=== PATIENT | female | born 1995 | race African-American/Black ===

== ENCOUNTER 2017-02-06 11:55 | Emergency (ER) | payer SELFPAY ==
[~2017-02-06 11:55] MED LIST: Sodium Chloride 0.9% 1,000 ML BAG ONE
[2017-02-06] MEDS ORDERED: Ondansetron HCl/PF 4 MG/2 ML Vial ONE (12:35)
[2017-02-06 13:13] LABS: ALT (SGPT) 13 U/L (8-55); AST (SGOT) 13 U/L (5-34); Albumin 3.8 g/dL (3.5-5.0); Alkaline Phosphatase 97 U/L (40-150); Anion Gap 18 mmol/L (10-20); BUN (Urea Nitrogen) 8 mg/dL (7.0-18.7); Bilirubin, Total 0.4 mg/dL (0.2-1.2); Calc. Creatinine Clearance 0 mL/min (70-130); Calcium 9.1 mg/dL (7.8-10.44); Carbon Dioxide 20 mmol/L (22-29); Chloride 106 mmol/L (98-107); Estimated GFR-MDRD Greater than 90; Globulin 4.1 g/dL (2.4-3.5); Glucose 119 mg/dL (70-105); Lipase 11 U/L (8-78); Potassium 3.9 mmol/L (3.5-5.1); Protein, Total 7.9 g/dL (6.0-8.3); Sodium 140 mmol/L (136-145)
[2017-02-06 13:26] LABS: Hemoglobin 12.4 g/dL (12.0-16.0); Lymphocytes 9 % (28-48); MDiff Complete? YES; Mean Corpuscular HGB CONC 31.6 g/dL (32.0-36.0); Mean Corpuscular Hemoglobin 23.6 pg (25.0-35.0); Mean Corpuscular Volume 74.8 fl (77.0-87.0); Mean Platelet Volume 5.2 fL (7.4-10.4); Monocytes 4 % (0-4); Neutrophil 87 % (31-61); PLT Morphology Comment Appears Increased; Platelet Count 498 thou/uL (130-400); RBC Distribution Width 14.1 % (11.5-14.5); Red Blood Cell (RBC) Count 5.26 mill/uL (4.00-5.20); White Blood Cell (WBC) Count 11.3 thou/uL (4.8-10.8)
[2017-02-06 13:47] LABS: Bilirubin Small (Negative); Blood, Urine Trace (Negative); Clarity Slightly Cloudy (Clear); Glucose, Urine (Dipstick) Negative (Negative); Leukocyte Trace (Negative); Nitrite Negative (Negative); Protein, Urine (Dipstick) 30 mg/dL (Neg-Trace)
[2017-02-06 13:49] LABS: Pregnancy Test - Urine (BHCG) Negative (Negative); Pregu Control Background? CLEAR/WHITE (CLR/WHITE); Pregu Control Bar Appear? YES (CONTROL BAR)
[2017-02-06 13:54] LABS: Bacteria/HPF 4+ HPF (None Seen); RBC/HPF 0-3 HPF (0-3); WBC/HPF 0-3 HPF (0-3)
== END 2017-02-06 14:22 | disposition home or self-care (01) ==
LOC: MADERS 11:55
DX: K52.9 Noninfective gastroenteritis and colitis, unspecified (principal); N30.01 Acute cystitis with hematuria
CPT/HCPCS: 80053; 81003; 81015; 81025; 82150; 83690; 85025; 96361; 96374; J2405; J7050

== ENCOUNTER 2017-02-26 09:07 | Emergency (ER) | payer SELFPAY ==
[2017-02-26] MEDS ORDERED: Bicillin LA 1.2 MILLION UNITS/2 ML SYRINGE ONE (09:29)
== END 2017-02-26 09:48 | disposition home or self-care (01) ==
LOC: MADERS 09:07
DX: J02.0 Streptococcal pharyngitis (principal)
CPT/HCPCS: 96372; J0561

== ENCOUNTER 2017-02-27 17:31 | Emergency (ER) | payer SELFPAY ==
[~2017-02-27 17:31] MED LIST changes: +Iopamidol 370 76% 125 ML VIAL FS ONE
[2017-02-27] MEDS ORDERED: Clindamycin/D5W 600 mg/50 ml Premix Bag ONE (18:03)
[2017-02-27] MEDS ORDERED: Morphine 4 MG/ML VIAL ONE (18:03)
[2017-02-27] MEDS ORDERED: Dexamethasone 10 MG/ML VIAL ONE (18:03)
[2017-02-27 18:19] LABS: Pregnancy Test - Urine (BHCG) Negative (Negative)
[2017-02-27 18:20] LABS: Pregu Control Background? CLEAR/WHITE (CLR/WHITE); Pregu Control Bar Appear? YES (CONTROL BAR); Specific Gravity 1.029 (1.002-1.036)
[2017-02-27 18:37] LABS: Prothrombin Time 13.7 SEC (12.0-14.7)
[2017-02-27 18:45] LABS: Anion Gap 14 mmol/L (10-20); BUN (Urea Nitrogen) 7 mg/dL (7.0-18.7); Calc. Creatinine Clearance 0 mL/min (70-130); Calcium 9.2 mg/dL (7.8-10.44); Carbon Dioxide 23 mmol/L (22-29); Chloride 104 mmol/L (98-107); Estimated GFR-MDRD Greater than 90; Glucose 102 mg/dL (70-105); Potassium 3.8 mmol/L (3.5-5.1); Sodium 137 mmol/L (136-145)
[2017-02-27 18:51] LABS: Eosinophils 1 % (0-10); Hemoglobin 12.3 g/dL (12.0-16.0); Lymphocytes 14 % (28-48); MDiff Complete? YES; Mean Corpuscular HGB CONC 30.3 g/dL (32.0-36.0); Mean Corpuscular Hemoglobin 22.8 pg (25.0-35.0); Mean Corpuscular Volume 75.3 fl (77.0-87.0); Mean Platelet Volume 5.4 fL (7.4-10.4); Monocytes 4 % (0-4); Neutrophil 72 % (31-61); PLT Morphology Comment Appears Increased; Platelet Count 538 thou/uL (130-400); RBC Distribution Width 14.1 % (11.5-14.5); RBC Morphology Normal; Reactive Lymphocytes 9 % (0-10); Red Blood Cell (RBC) Count 5.38 mill/uL (4.00-5.20); White Blood Cell (WBC) Count 11.2 thou/uL (4.8-10.8)
--- NOTE | 2017-02-27 19:32 | CT ---
NECK CT WITH IV CONTRAST: Date: 02/27/17 COMPARISON: None. HISTORY: Pain, sore throat, face and neck swelling. TECHNIQUE: Serial axial CT imaging at 2.5 mm intervals from the thoracic inlet through the skull base with IV co ntrast. Coronal and sagittal reformatted imaging obtained. FINDINGS: The retroantral fat and the parapharyngeal fat appears clear bilaterally. There is mild symmetric pro minence of the tonsillar soft tissues with no evidence for a tonsillar or peritonsillar abscess. Ther e is mild mucosal thickening involving the alveolar recess of the left maxillary sinus. Bilateral par otid and submandibular glands appear unremarkable. The thyroid gland, hyoid bone, epiglottis, and preepiglottic fat appear unremarkable. Streak artifact from dental amalgam slightly limits assessment of the oral cavity and the tongue. Nonspecific enlarged bilateral Level IIA lymph nodes are noted, measuring up to 1.5 cm in short axis dimension on the left (image 30) and up to 1.6 cm in short axis dimension on the right (image 26). No enlarged posterior triangle nodes are present. No evidence for abscess seen. Osseous structures demo nstrate no acute findings. On the sagittal reformatted imaging, the nasopharyngeal mucosa is prominent. IMPRESSION: Prominence of the nasopharyngeal soft tissues and bilateral tonsillar pillars with lymphadenopathy wi thin the neck bilaterally. Findings are presumably reactive/inflammatory in nature. Follow-up imaging to document resolution and thus exclude the unlikely possibility of neoplasia. No evidence for absce ss. POS: [facility]
== END 2017-02-27 20:15 | disposition critical access hospital (66) ==
LOC: MADERS 17:31
DX: J02.9 Acute pharyngitis, unspecified (principal)
CPT/HCPCS: 70491; 80048; 81025; 85025; 85610; 85730; 86850; 86900; 86901; 87081; 87430; 96365; 96375; J1100; J2270; J3490; J7050

== ENCOUNTER 2017-02-27 19:42 | Observation (INO) | payer SELFPAY ==
[2017-02-27] MEDS ORDERED: Ketorolac Tromethamine 30 MG/ML VIAL ONE (19:51)
[2017-02-27] MEDS ORDERED: Acetaminophen 325 MG TAB PO PRN (20:37)
[2017-02-27] MEDS ORDERED: Ondansetron HCl/PF 4 MG/2 ML Vial SLOW IVP PRN (20:37)
[2017-02-27] MEDS ORDERED: Morphine 4 MG/ML Carpuject SLOW IVP PRN (20:40)
[2017-02-27] MEDS ORDERED: Ketorolac Tromethamine 30 MG/ML VIAL IVP PRN (20:42)
[2017-02-27 20:46] VITALS: BMI 46.5
[2017-02-27] MEDS ORDERED: Clindamycin/D5W 600 MG in Premix Bag 1 BAG IVPB SCH (21:00)
[2017-02-27] MEDS: Sodium Chloride 0.9% 1,000 ML IV SCH (22:13)
[2017-02-27] MEDS ORDERED: Chloraseptic Spray 180 ml Bottle PO PRN (22:49)
[2017-02-28] MEDS ORDERED: Morphine 4 MG/ML VIAL ONE (01:05)
[2017-02-28] MEDS ORDERED: Morphine 4 MG/ML VIAL SLOW IVP PRN (01:21)
[2017-02-28] MEDS: Clindamycin/D5W 600 MG in Premix Bag 1 BAG IVPB SCH ×2 (01:26→09:36)
[2017-02-28] MEDS: Sodium Chloride 0.9% 1,000 ML IV SCH (05:22)
[2017-02-28 08:58] LABS: Hemoglobin 11.6 g/dL (12.0-16.0); Mean Corpuscular HGB CONC 30.4 g/dL (32.0-36.0); Mean Corpuscular Hemoglobin 22.7 pg (25.0-35.0); Mean Corpuscular Volume 74.8 fl (77.0-87.0); Mean Platelet Volume 5.8 fL (7.4-10.4); Platelet Count 522 thou/uL (130-400); RBC Distribution Width 13.8 % (11.5-14.5); Red Blood Cell (RBC) Count 5.04 mill/uL (4.00-5.20)
[2017-02-28] MEDS ORDERED: Dexamethasone 10 MG/ML VIAL SLOW IVP SCH (09:00)
[2017-02-28] MEDS ORDERED: FLU VACC QS2017-18 36 mo. & older 0.5 ML SYRINGE IM ONE (09:00)
[2017-02-28 09:09] LABS: Anion Gap 14 mmol/L (10-20); BUN (Urea Nitrogen) 8 mg/dL (7.0-18.7); Calc. Creatinine Clearance 281 mL/min (70-130); Calcium 9.1 mg/dL (7.8-10.44); Carbon Dioxide 18 mmol/L (22-29); Chloride 108 mmol/L (98-107); Estimated GFR-MDRD Greater than 90; Glucose 190 mg/dL (70-105); Potassium 4.3 mmol/L (3.5-5.1); Sodium 136 mmol/L (136-145)
[2017-02-28 09:23] LABS: MONO NEGATIVE CONTROL ZONE White (Negative) (White); MONO POSITIVE CONTROL Pink Line (Positive) (PINK/RED); Mononucleosis NEGATIVE (NEGATIVE)
[2017-02-28] MEDS ORDERED: Ibuprofen 800 MG TAB PO PRN (09:34)
--- NOTE | 2017-02-28 09:38 | HP ---
DATE OF ADMISSION: 02/27/2017 CHIEF COMPLAINT: Sore throat. HISTORY OF PRESENT ILLNESS: This is a 21-year-old -[place] female with history of ventricular septal defect that presented to the emergency room initially on 02/26/2017 with complaint of sore throat and painful swallowing. The patient was given IM Bicillin shot and discharged home. The following day, patient had worsening symptoms, so presented back to the emergency room. At that time, she was noted by the emergency room physician to have significant trismus, severe discomfort, and inability to swallow. Blood work indicated a mild leukocytosis and CT scan was ordered by the emergency room physician to roll out tonsillar abscess. CT scan was significant for prominence of the nasopharyngeal soft tissues and bilateral tonsillar pillars with associated lymphadenopathy of the neck bilaterally, which were likely disability representative of a reactive or inflammatory etiology. No abscess was noted. Rapid Strep screen was negative. No throat culture testing or mono testing was done. The patient was admitted to the medical floor for observation by Dr. Grajeda for IV antibiotics and steroids as well as IV pain control. Upon interviewing the patient this morning, she reports significant improvement throughout the night. She is now able to open her mouth completely and swallow with much less discomfort. She has not had any fevers overnight and is able to take small sips this morning. She has not yet attempted to eat breakfast. The patient reports associated bilateral ear pain as well as facial pain, but denies any headache, neck pain, chest pain, shortness of breath, nausea, vomiting, or diarrhea. The patient reports she has had 1 prior episode of strep throat this year back in December that was treated with amoxicillin and resolved completely, but otherwise has not had recurrent episodes of pharyngitis or tonsillitis. PAST MEDICAL HISTORY: Ventricular septal defect. The patient does not follow with a research psychologist. PAST SURGICAL HISTORY: None. FAMILY HISTORY: Positive for multiple family members with diabetes. SOCIAL HISTORY: The patient is a nonsmoker, nondrinker. She does not use illicit drugs. She lives at home with her family. ALLERGIES: No known drug allergies. REVIEW OF SYSTEMS: General: Negative for fever, weight changes, or body aches. HEENT: Positive for sore throat, difficulty swallowing, ear pain, facial pain. Cardiovascular: Denies any chest pain, palpitations. Respiratory : Denies any cough, shortness of breath, or difficulty breathing. Abdominal: Denies any nausea, vomiting, diarrhea, constipation, blood in her stools. Genitourinary: Denies any urinary symptoms. Musculoskeletal: Denies any joint pain, joint swelling, or difficulty walking. Neurologic: Denies any syncope, seizures, or headache. Integumentary: Denies any rash. Hematologic/ Oncologic: Denies any easy bruising or easy bleeding. PHYSICAL EXAMINATION: VITAL SIGNS: Temperature is 97.5 with a T-max of 99.5 overnight, blood pressure is 107/63, heart rate has ranged between 89 and 102, respirations 18, O2 saturation 98% on room air. GENERAL: The patient is alert, oriented, awake, and sitting up in bed. She is in no apparent distress. She is cooperative. HEENT: Normocephalic, atraumatic. Pupils are equally round and reactive to light. Extraocular movements are intact. Sclerae are nonicteric. Bilateral tympanic membranes are dull without erythema or perforation. Face is symmetric without any significant swelling. Oropharynx is mildly dry and significant for 3+ tonsillar hypertrophy with erythema and exudates bilaterally. No deviation of the uvula. NECK: Supple, without thyromegaly, lymphadenopathy that is palpable. Negative for stiffness. CARDIOVASCULAR: Significant for 3/6 systolic murmur. Rate is regular. No edema. RESPIRATORY: Lungs are clear to auscultation bilaterally without adventitial sounds. GASTROINTESTINAL: Abdomen is soft, nontender, nondistended with normoactive bowel sounds. EXTREMITIES: Negative for clubbing, cyanosis, or edema. Brisk cap refill. NEUROLOGIC: No focal deficits. PSYCHIATRIC: Mood is appropriate. LABORATORY DATA AND IMAGING: CBC with a white blood cell count of 11.2, hemoglobin of 12.3, hematocrit 40.5, platelets 538. Normal coagulation panel. Normal chemistry panel. Urine specific gravity was 1.029 and urine test was negative. Group A strep screen was negative. CT scan indicated prominence of nasopharyngeal soft tissues and bilateral tonsillar pillars with lymphadenopathy within the neck bilaterally suggestive of a reactive or inflammatory etiology. No definite abscess. ASSESSMENT AND PLAN: 1. Exudative pharyngitis. The patient was admitted to the medical floor under observation status for continued IV antibiotics, IV pain control, and IV steroids. The patient is much improved this morning. We will continue on her current management with a plan to advance her diet as tolerated this morning. We will reevaluate the patient later today, and if she continues to tolerate fluids with good pain control then we will anticipate discharge home on p.o. amoxicillin as well as pain medication. I have ordered a followup throat culture given the negative strep screen in the emergency room as well as mononucleosis testing. 2. Leukocytosis with left shift: Likely disability representative of bacterial pharyngitis. Management as above. 3. Ventricular septal defect. This is chronic for the patient. She does not follow with a research psychologist at this time despite being urged to do so on the outpatient clinic. We will continue to have these discussions with the patient and her mom later today as to the importance of at least yearly followup for this. DISPOSITION: The patient is under observation status and is anticipated to be discharged later today pending continued clinical improvement with anticipated outpatient followup in 1-2 days. Deep venous thrombosis prophylaxis, none. CODE STATUS: The patient is FULL CODE. MTDD
[2017-02-28 09:45] LABS: Band 1 % (5-11); Lymphocytes 6 % (28-48); MDiff Complete? YES; Manual Diff?? YES; Monocytes 4 % (0-4); Neutrophil 89 % (31-61)
[2017-02-28 09:46] LABS: Anisocytosis SLIGHT = 6-15 cells (100X) (0-5/hpf); PLT Morphology Comment Appears Increased
[2017-02-28] MEDS ORDERED: Sodium Chloride 0.9% 1,000 ML BAG ONE (12:01)
[2017-02-28 16:46] VITALS: BP 136/68; TEMP 98.1
[2017-02-28] MEDS ORDERED: Clindamycin/D5W 600 MG in Premix Bag 1 BAG IVPB SCH (18:00)
== END 2017-02-28 17:20 | disposition home or self-care (01) ==
LOC: MADMS 19:42
PROVIDERS: ADMIT Family Medicine; ATTEND Family Medicine
DX: J02.9 Acute pharyngitis, unspecified (principal); D72.829 Elevated white blood cell count, unspecified; Q21.0 Ventricular septal defect
CPT/HCPCS: 36415; 80048; 85025; 86308; 87070; 90471; 90682; 96361; 96365; 96375; A4216; G0008; G0378; J1100; J1885; J2270; J3490; J7050; Q2036

== ENCOUNTER 2017-03-23 02:59 | Emergency (ER) | payer SELFPAY ==
[2017-03-23] MEDS ORDERED: Ondansetron ODT 4 MG TAB ONE (03:17)
== END 2017-03-23 03:40 | disposition home or self-care (01) ==
LOC: MADERS 02:59
DX: K52.9 Noninfective gastroenteritis and colitis, unspecified (principal)
CPT/HCPCS: 96372; Q0162

== ENCOUNTER 2017-04-07 17:40 | Emergency (ER) | payer SELFPAY ==
[2017-04-07] MEDS ORDERED: HYDROcodone/Acetaminophen 10/325 mg Tablet ONE (19:29)
[2017-04-07] MEDS ORDERED: Benzonatate 100 MG CAP ONE (19:29)
[2017-04-07] MEDS ORDERED: Naproxen 500 MG TAB ONE (19:29)
[2017-04-07] MEDS ORDERED: AMOXicillin 250 MG CAP ONE (20:01)
[2017-04-07] MEDS ORDERED: predniSONE 20 MG TAB ONE (20:01)
== END 2017-04-07 20:07 | disposition home or self-care (01) ==
LOC: MADERS 17:40
DX: J20.9 Acute bronchitis, unspecified (principal)
CPT/HCPCS: 87081; 87430; 99283; J7506

== ENCOUNTER 2017-05-13 07:40 | Emergency (ER) | payer SELFPAY ==
[2017-05-13] MEDS ORDERED: AMOXicillin 250 MG CAP ONE (09:34)
[2017-05-13] MEDS ORDERED: Benzonatate 100 MG CAP ONE (09:35)
== END 2017-05-13 09:43 | disposition home or self-care (01) ==
LOC: MADERS 07:40
DX: J02.9 Acute pharyngitis, unspecified (principal)
CPT/HCPCS: 87081; 87430; 87804; 99283

== ENCOUNTER 2017-06-25 14:46 | Emergency (ER) | payer SELFPAY ==
[2017-06-25 16:12] LABS: Bilirubin Negative (Negative); Blood, Urine Large (Negative); Clarity Slightly Cloudy (Clear); Glucose, Urine (Dipstick) Negative (Negative); Leukocyte Negative (Negative); Nitrite Negative (Negative); Protein, Urine (Dipstick) Negative (Neg-Trace); Urobilinogen 0.2 mg/dL (0.2-1.0); pH, Urine 7.5 (5.0-9.0)
[2017-06-25 16:15] LABS: Pregnancy Test - Urine (BHCG) Negative (Negative); Pregu Control Background? CLEAR/WHITE (CLR/WHITE); Pregu Control Bar Appear? YES (CONTROL BAR)
[2017-06-25 16:16] LABS: Bacteria/HPF 1+ HPF (None Seen); RBC/HPF 21-50 HPF (0-3); WBC/HPF 0-3 HPF (0-3)
== END 2017-06-25 16:40 | disposition home or self-care (01) ==
LOC: MADERS 14:46
DX: J20.9 Acute bronchitis, unspecified (principal)
CPT/HCPCS: 81001; 81025; 87081; 87086; 87430

== ENCOUNTER 2017-08-06 21:02 | Emergency (ER) | payer SELFPAY ==
[2017-08-06] MEDS ORDERED: Diazepam 5 MG TAB ONE (21:31)
[2017-08-06] MEDS ORDERED: Naproxen 500 MG TAB ONE (21:31)
[2017-08-06] MEDS ORDERED: HYDROcodone/Acetaminophen 10/325 mg Tablet ONE (21:31)
--- NOTE | 2017-08-06 21:54 | RAD ---
TWO VIEWS LUMBAR SPINE: 08/06/17 HISTORY: Back pain. AP and lateral views of the lumbar spine is obtained. Five nonribbearing lumbar vertebrae are seen. No evidence of lumbar spine fractures or bony lesions s een. IMPRESSION: Normal two views lumbar spine. POS: [facility]
== END 2017-08-06 22:10 | disposition home or self-care (01) ==
LOC: MADERS 21:02
DX: M54.5 Low back pain (principal); X50.0XXA Overexertion from strenuous movement or load, initial encounter
CPT/HCPCS: 72100

== ENCOUNTER 2017-09-02 20:25 | Emergency (ER) | payer SELFPAY ==
[2017-09-02] MEDS ORDERED: Acetaminophen 500 MG TAB ONE (21:00)
--- NOTE | 2017-09-02 21:07 | RAD ---
TWO VIEWS OF THE CHEST: 09/02/17 COMPARISON: 09/18/15. HISTORY: Cough. FINDINGS: No pneumothorax, pleural fluid, focal consolidation, or alveolar edema. Heart and mediastinal contour s are stable. No acute findings are seen. IMPRESSION: No acute findings. POS: [facility]
== END 2017-09-02 21:34 | disposition home or self-care (01) ==
LOC: MADERS 20:25
DX: H66.92 Otitis media, unspecified, left ear (principal); J06.9 Acute upper respiratory infection, unspecified; R01.1 Cardiac murmur, unspecified; E66.9 Obesity, unspecified
CPT/HCPCS: 71046; 93005

== ENCOUNTER 2017-09-03 16:07 | Emergency (ER) | payer SELFPAY ==
[2017-09-03] MEDS ORDERED: Neomycin/Polymyxin/HC Otic Solution 10 ML BOT ONE (16:46)
[2017-09-03] MEDS ORDERED: NEOMYCIN-POLYMYXIN-HC EAR SUSP 200 DROP/10 ML BOT ONE (16:52)
== END 2017-09-03 17:07 | disposition home or self-care (01) ==
LOC: MADERS 16:07
DX: H60.93 Unspecified otitis externa, bilateral (principal); E66.9 Obesity, unspecified
CPT/HCPCS: 99282

== ENCOUNTER 2017-11-07 12:14 | Outpatient (CLI) | payer BC ==
--- NOTE | 2017-11-07 13:21 | RAD ---
LEFT SHOULDER THREE VIEWS: History: 21-year-old female with history of left shoulder strain following an injury taking out the trash last night. FINDINGS/IMPRESSION: No fracture, dislocation, or other significant acute osseous abnormality. POS: [facility]
== END 2017-11-07 12:15 | disposition home or self-care (01) ==
LOC: MADRAD 12:14
PROVIDERS: ATTEND Family Medicine
DX: S49.92XA Unspecified injury of left shoulder and upper arm, initial encounter (principal)

== ENCOUNTER 2018-05-18 20:11 | Emergency (ER) | payer BC ==
--- NOTE | 2018-05-18 21:29 | RAD ---
TWO VIEW CHEST: 05/18/18 HISTORY: Chest pain. Lung coppola are clear. Heart size is upper normal. The heart configuration and size is stable when co mpared to films dating back to 2016. Vascular markings normal. Osseous structures are unremarkable. IMPRESSION: Borderline enlarged heart. Chest is otherwise unremarkable and unchanged. POS: [facility]
== END 2018-05-18 22:20 | disposition home or self-care (01) ==
LOC: MADERS 20:11
DX: R07.89 Other chest pain (principal)
CPT/HCPCS: 71046; 93005

== ENCOUNTER 2018-10-11 19:56 | Emergency (ER) | payer BC ==
--- NOTE | 2018-10-11 21:28 | RAD ---
PORTABLE CHEST: 10/11/18 HISTORY: Chest pain. Heart size is prominent but is accentuated by this projection. Vascular markings appear upper normal. The lung coppola are clear. Exam is limited due to soft tissue attenuation. IMPRESSION: No acute abnormality identified. POS: [facility]
[2018-10-11] MEDS ORDERED: Naproxen 500 MG TAB ONE (22:25)
== END 2018-10-11 22:35 | disposition home or self-care (01) ==
LOC: MADERS 19:56
DX: M94.0 Chondrocostal junction syndrome [Tietze] (principal); E66.9 Obesity, unspecified
CPT/HCPCS: 71045; 93005

== ENCOUNTER 2018-11-24 07:33 | Emergency (ER) | payer BC ==
[2018-11-24] MEDS ORDERED: Ondansetron ODT 4 MG TAB ONE (08:16)
== END 2018-11-24 09:00 | disposition home or self-care (01) ==
LOC: MADERS 07:33
DX: K52.9 Noninfective gastroenteritis and colitis, unspecified (principal); E66.9 Obesity, unspecified
CPT/HCPCS: 99283; Q0162

== ENCOUNTER 2019-05-16 19:12 | Emergency (ER) | payer BC ==
[~2019-05-16 19:12] MED LIST changes: +Iopamidol 370 76% 100 ML VIAL ONE; -Iopamidol 370 76% 125 ML VIAL FS ONE; -Sodium Chloride 0.9% 1,000 ML BAG ONE
[2019-05-16 20:42] LABS: Hemoglobin 11.8 g/dL (12.0-16.0); Mean Corpuscular HGB CONC 29.4 g/dL (32.0-36.0); Mean Corpuscular Hemoglobin 21.9 pg (27.0-31.0); Mean Corpuscular Volume 74.5 fL (78.0-98.0); Mean Platelet Volume 6.3 fL (7.4-10.4); Platelet Count 453 thou/uL (130-400); RBC Distribution Width 14.1 % (11.5-14.5); Red Blood Cell (RBC) Count 5.38 mill/uL (4.20-5.40); White Blood Cell (WBC) Count 9.9 thou/uL (4.8-10.8)
[2019-05-16 20:50] LABS: CRP (Inflammatory) 3.99 mg/dL (= or < 0.5)
[2019-05-16 20:52] LABS: ALT (SGPT) 15 U/L (8-55); AST (SGOT) 17 U/L (5-34); Alkaline Phosphatase 93 U/L (40-110); Anion Gap 14 mmol/L (10-20); BUN (Urea Nitrogen) 6 mg/dL (7.0-18.7); Bilirubin, Total 0.3 mg/dL (0.2-1.2); Calc. Creatinine Clearance 0 mL/min (70-130); Calcium 9.2 mg/dL (7.8-10.44); Carbon Dioxide 25 mmol/L (22-29); Chloride 104 mmol/L (98-107); Estimated GFR-MDRD Greater than 90; Globulin 4.1 g/dL (2.4-3.5); Glucose 178 mg/dL (70-105); Lipase 7 U/L (8-78); Protein, Total 8.1 g/dL (6.0-8.3); Sodium 139 mmol/L (136-145)
[2019-05-16 20:53] LABS: Band 3 % (5-11); Eosinophils 1 % (0-10); Hypochromia SLIGHT = 6-15 cells (100X) (0-5/hpf); Lymphocytes 25 % (21-51); MDiff Complete? YES; Microcytosis SLIGHT = 6-15 cells (100X) (0-5/hpf); Monocytes 4 % (0-10); Neutrophil 67 % (42-75); Platelet Morphology Comment Appears Increased; Stomatocytes SLIGHT = 2-5 cells (100X) (0-1/hpf)
[2019-05-16 21:55] LABS: Bilirubin Negative (Negative); Blood, Urine Negative (Negative); Clarity Slightly Cloudy (Clear); Glucose, Urine (Dipstick) Negative (Negative); Leukocyte Negative (Negative); Nitrite Negative (Negative); Protein, Urine (Dipstick) Trace mg/dL (Neg-Trace)
[2019-05-16 21:56] LABS: Pregnancy Test - Urine (BHCG) Negative (Negative)
[2019-05-16 21:58] LABS: Pregu Control Background? CLEAR/WHITE (CLR/WHITE); Pregu Control Bar Appear? YES (CONTROL BAR); Specific Gravity 1.035 (1.002-1.036)
[2019-05-16] MEDS ORDERED: Sodium Chloride 0.9% 1,000 ML ONE (22:16)
--- NOTE | 2019-05-16 23:57 | CT ---
CT abdomen and pelvis: 05/16/2019 COMPARISON: None HISTORY: Low abdominal pain TECHNIQUE: Axial CT imaging at 5 mm intervals from lung bases through pubic symphysis with intravenou s and oral contrast. Coronal and sagittal reformatted imaging obtained. FINDINGS: The visualized lung bases are unremarkable. No free intraperitoneal air is seen. The liver, gallbladder, and spleen demonstrate no acute findings. The pancreas and bilateral adrenal glands are grossly unremarkable as are the kidneys. No evidence for bowel inflammatory change or bowel obstruction. The appendix appears unremarkable. A small follicle is seen in the region of the right ovary measuring 1.5 cm. No abdominal or pelvic lymphadenopathy is apparent. Osseous structures of the abdomen/pelvis demonstrate no acute findings. IMPRESSION: No evidence for appendicitis, free intraperitoneal air, or bowel obstruction.
== END 2019-05-17 00:11 | disposition home or self-care (01) ==
LOC: MADERS 19:12
DX: K52.9 Noninfective gastroenteritis and colitis, unspecified (principal); E11.9 Type 2 diabetes mellitus without complications; E66.9 Obesity, unspecified; Z79.84 Long term (current) use of oral hypoglycemic drugs
CPT/HCPCS: 74177; 80053; 81003; 81025; 82150; 83690; 85025; 86140; 96360; J7050; Q9967

== ENCOUNTER 2019-06-23 05:22 | Emergency (ER) | payer BC ==
[2019-06-23] MEDS ORDERED: Ondansetron ODT 4 MG TAB ONE (06:09)
[2019-06-23] MEDS ORDERED: Dicyclomine 10 MG CAP ONE (06:09)
== END 2019-06-23 06:22 | disposition home or self-care (01) ==
LOC: MADERS 05:22
DX: K52.9 Noninfective gastroenteritis and colitis, unspecified (principal); E11.9 Type 2 diabetes mellitus without complications; E66.9 Obesity, unspecified
CPT/HCPCS: 99283; Q0162

== ENCOUNTER 2019-09-05 07:57 | Emergency (ER) | payer BC ==
--- NOTE | 2019-09-05 08:58 | RAD ---
PORTABLE CHEST: Date: 09/05/2019 PROVIDED CLINICAL HISTORY: Cough. FINDINGS: Comparison with 10/11/2018. Evaluation is limited by patient body habitus. The cardiac silhouette remains enlarged. No definite f ocal consolidation, pleural fluid, or pneumothorax apparent. IMPRESSION: No evidence for an acute cardiopulmonary process. POS: [facility]
[2019-09-05] MEDS ORDERED: Ondansetron ODT 4 MG TAB ONE (09:39)
== END 2019-09-05 09:47 | disposition home or self-care (01) ==
LOC: MADERS 07:57
DX: J06.9 Acute upper respiratory infection, unspecified (principal); R11.2 Nausea with vomiting, unspecified; E11.9 Type 2 diabetes mellitus without complications; E66.9 Obesity, unspecified
CPT/HCPCS: 71045; 87081; 87430; Q0162

== ENCOUNTER 2019-09-19 09:10 | Emergency (ER) | payer BC ==
--- NOTE | 2019-09-19 10:12 | RAD ---
LEFT THUMB 3 VIEWS: Date: 09/19/2019 HISTORY: Injury, slammed car door on thumb. FINDINGS: No evidence for acute fracture, dislocation, or other acute process. IMPRESSION: Unremarkable left thumb 3 views. POS: [facility]
== END 2019-09-19 10:25 | disposition home or self-care (01) ==
LOC: MADERS 09:10
DX: S67.02XA Crushing injury of left thumb, initial encounter (principal); S60.112A Contusion of left thumb with damage to nail, initial encounter; E11.9 Type 2 diabetes mellitus without complications; E66.9 Obesity, unspecified; W22.8XXA Striking against or struck by other objects, initial encounter

== ENCOUNTER 2019-10-07 03:53 | Emergency (ER) | payer BC ==
[2019-10-07] MEDS ORDERED: Sodium Chloride 0.9% 1,000 ML ONE (04:51)
[2019-10-07 05:01] LABS: Bilirubin Negative (Negative); Blood, Urine Negative (Negative); Clarity Clear (Clear); Glucose, Urine (Dipstick) 500 mg/dL (Negative); Ketone, Urine Negative (Negative); Leukocyte Negative (Negative); Nitrite Negative (Negative); Protein, Urine (Dipstick) Negative (Neg-Trace); Specific Gravity, Urine 1.034 (1.002-1.036)
[2019-10-07 05:02] LABS: Pregnancy Test - Urine (BHCG) Negative (Negative); Pregu Control Background? CLEAR/WHITE (CLR/WHITE); Pregu Control Bar Appear? YES (CONTROL BAR); Specific Gravity 1.034 (1.002-1.036)
[2019-10-07 05:09] LABS: #Basophils 0.1 thou/uL (0.0-0.2); #Eosinphils 0.2 thou/uL (0.0-0.7); #Lymphocytes 2.5 thou/uL (1.20-3.40); #Monocytes 0.6 thou/uL (0.11-0.59); #Neutrophils 4.8 thou/uL (1.40-6.50); %Basophils 0.8 % (0.0-1.0); %Eosinophils 2.4 % (0.0-10.0); %Lymphocytes 30.5 % (21.0-51.0); %Monocytes 7.2 % (0.0-10.0); %Neutrophils 59.1 % (42.0-75.0); Hemoglobin 11.3 g/dL (12.0-16.0); Hypochromia SLIGHT = 6-15 cells (100X) (0-5/hpf); MDiff Complete? YES; Mean Corpuscular HGB CONC 28.7 g/dL (32.0-36.0); Mean Corpuscular Hemoglobin 21.4 pg (27.0-31.0); Mean Corpuscular Volume 74.7 fL (78.0-98.0); Mean Platelet Volume 5.9 fL (7.4-10.4); Microcytosis SLIGHT = 6-15 cells (100X) (0-5/hpf); Platelet Count 530 thou/uL (130-400); RBC Distribution Width 14.4 % (11.5-14.5); Red Blood Cell (RBC) Count 5.24 mill/uL (4.20-5.40); White Blood Cell (WBC) Count 8.3 thou/uL (4.8-10.8)
[2019-10-07 05:13] LABS: ALT (SGPT) 13 U/L (8-55); AST (SGOT) 9 U/L (5-34); Albumin 3.7 g/dL (3.5-5.0); Alkaline Phosphatase 105 U/L (40-110); Anion Gap 15 mmol/L (10-20); BUN (Urea Nitrogen) 7 mg/dL (7.0-18.7); Bilirubin, Total 0.3 mg/dL (0.2-1.2); Calc. Creatinine Clearance 0 mL/min (70-130); Calcium 8.8 mg/dL (7.8-10.44); Carbon Dioxide 24 mmol/L (22-29); Chloride 102 mmol/L (98-107); Globulin 3.8 g/dL (2.4-3.5); Glucose 280 mg/dL (70-105); Lipase 19 U/L (8-78); Potassium 3.7 mmol/L (3.5-5.1); Protein, Total 7.5 g/dL (6.0-8.3); Sodium 137 mmol/L (136-145)
[2019-10-07] MEDS ORDERED: Ketorolac Tromethamine 30 MG/ML VIAL ONE (05:26)
[2019-10-07] MEDS ORDERED: Dicyclomine 10 MG CAP ONE (05:26)
== END 2019-10-07 05:54 | disposition home or self-care (01) ==
LOC: MADERS 03:53
DX: E11.65 Type 2 diabetes mellitus with hyperglycemia (principal); E86.9 Volume depletion, unspecified
CPT/HCPCS: 36416; 80053; 81003; 81025; 83690; 85025; 96361; 96374; J1885; J7050

== ENCOUNTER 2020-01-12 17:11 | Emergency (ER) | payer BC, OTHER ==
[2020-01-12] MEDS ORDERED: Acetaminophen 500 MG TAB ONE (18:14)
[2020-01-14 10:36] LABS: SARS-CoV-2 MS2 Positive; SARS-CoV-2 N Gene Negative; SARS-CoV-2 S Gene Negative; SARS-CoV-2 by NAA Not Detected (NotDetected); SARS-CoV-2 orf1ab Negative
== END 2020-01-12 18:51 | disposition home or self-care (01) ==
LOC: MADERS 17:11
DX: O99.512 Diseases of the respiratory system complicating pregnancy, second trimester (principal); J02.9 Acute pharyngitis, unspecified; O24.912 Unspecified diabetes mellitus in pregnancy, second trimester; Z3A.14 14 weeks gestation of pregnancy; Z20.828 Contact with and (suspected) exposure to other viral communicable diseases
CPT/HCPCS: 87635; 87804; U0003

== ENCOUNTER 2020-04-08 17:12 | Emergency (ER) | payer OTHER ==
--- NOTE | 2020-04-08 18:37 | RAD ---
PORTABLE CHEST: 04/08/20 HISTORY: Chest pain. COMPARISON: 09/05/19 exam. Heart size is enlarged. No focal infiltrates or signs of failure. No significant bony findings. IMPRESSION: Cardiomegaly. Stable exam. POS: [facility]
[2020-04-08 19:01] LABS: #Basophils 0.1 thou/uL (0.0-0.2); #Eosinphils 0.2 thou/uL (0.0-0.7); #Lymphocytes 2.5 thou/uL (1.20-3.40); #Monocytes 0.6 thou/uL (0.11-0.59); #Neutrophils 6.5 thou/uL (1.40-6.50); %Basophils 1.3 % (0.0-1.0); %Eosinophils 2.1 % (0.0-10.0); %Lymphocytes 24.8 % (21.0-51.0); %Monocytes 5.8 % (0.0-10.0); Hemoglobin 11.3 g/dL (12.0-16.0); Mean Corpuscular HGB CONC 30.7 g/dL (32.0-36.0); Mean Corpuscular Volume 74.9 fL (78.0-98.0); Mean Platelet Volume 6.3 fL (7.4-10.4); Platelet Count 430 thou/uL (130-400); RBC Distribution Width 13.2 % (11.5-14.5); Red Blood Cell (RBC) Count 4.91 mill/uL (4.20-5.40); White Blood Cell (WBC) Count 9.9 thou/uL (4.8-10.8)
[2020-04-08 19:17] LABS: ALT (SGPT) 15 U/L (8-55); AST (SGOT) 10 U/L (5-34); Albumin 3.5 g/dL (3.5-5.0); Alkaline Phosphatase 91 U/L (40-110); Anion Gap 13 mmol/L (10-20); BUN (Urea Nitrogen) 5 mg/dL (7.0-18.7); Bilirubin, Total 0.2 mg/dL (0.2-1.2); Calc. Creatinine Clearance 0 mL/min (70-130); Carbon Dioxide 23 mmol/L (22-29); Chloride 105 mmol/L (98-107); Globulin 3.5 g/dL (2.4-3.5); Glucose 141 mg/dL (70-105); Lipase 11 U/L (8-78); Potassium 3.8 mmol/L (3.5-5.1); Sodium 137 mmol/L (136-145)
[2020-04-08] MEDS ORDERED: Mag-Al Plus 1200 MG/1200 MG/120 MG/30 ML UDCUP ONE (19:40)
[2020-04-08] MEDS ORDERED: Lidocaine Viscous Sol 2% 15 ml UD Cup ONE (19:40)
== END 2020-04-08 20:58 | disposition home or self-care (01) ==
LOC: MADERS 17:12
DX: O99.613 Diseases of the digestive system complicating pregnancy, third trimester (principal); K21.00 Gastro-esophageal reflux disease with esophagitis, without bleeding; O99.213 Obesity complicating pregnancy, third trimester; E66.9 Obesity, unspecified; O24.913 Unspecified diabetes mellitus in pregnancy, third trimester; Z79.899 Other long term (current) drug therapy; Z79.4 Long term (current) use of insulin
CPT/HCPCS: 36415; 71045; 80053; 83690; 84484; 85025; 93005; 94760

== ENCOUNTER 2020-09-24 17:09 | Emergency (ER) | payer BC, OTHER | END 2020-09-24 18:08 | disposition home or self-care (01) | LOC: MADERS 17:09 | DX: J06.9 Acute upper respiratory infection, unspecified (principal); E11.9 Type 2 diabetes mellitus without complications; E66.9 Obesity, unspecified | CPT/HCPCS: 99282 ==

== ENCOUNTER 2021-03-18 07:01 | Emergency (ER) | payer BC, OTHER ==
[2021-03-18] MEDS ORDERED: Ondansetron ODT 4 MG TAB ONE (07:42)
[2021-03-18 21:03] LABS: SARS-CoV-2 PCR by NAA Not Detected (NotDetected)
== END 2021-03-18 08:12 | disposition home or self-care (01) ==
LOC: MADERS 07:01
DX: J20.9 Acute bronchitis, unspecified (principal); E11.9 Type 2 diabetes mellitus without complications; B34.9 Viral infection, unspecified; E66.9 Obesity, unspecified; Z20.822 Contact with and (suspected) exposure to COVID-19
CPT/HCPCS: 36416; 71045; Q0162; U0003; U0005

== ENCOUNTER 2021-04-28 06:35 | Emergency (ER) | payer BC, OTHER ==
[2021-04-28 07:24] LABS: Hemoglobin 12.4 g/dL (12.0-16.0); Mean Corpuscular HGB CONC 30.2 g/dL (32.0-36.0); Mean Corpuscular Hemoglobin 22.7 pg (27.0-31.0); Mean Corpuscular Volume 75.1 fL (78.0-98.0); Mean Platelet Volume 5.9 fL (7.4-10.4); Platelet Count 493 thou/uL (130-400); Red Blood Cell (RBC) Count 5.47 mill/uL (4.20-5.40); White Blood Cell (WBC) Count 7.5 thou/uL (4.8-10.8)
[2021-04-28 07:34] LABS: ALT (SGPT) Less than 7 U/L (8-55); AST (SGOT) 8 U/L (5-34); Albumin 3.4 g/dL (3.5-5.0); Alkaline Phosphatase 100 U/L (40-110); Anion Gap 14 mmol/L (10-20); BUN (Urea Nitrogen) 6 mg/dL (7.0-18.7); Bilirubin, Total 0.4 mg/dL (0.2-1.2); CK (CPK) 45 U/L (29-168); Calc. Creatinine Clearance 0 mL/min (70-130); Carbon Dioxide 23 mmol/L (22-29); Chloride 102 mmol/L (98-107); Globulin 3.9 g/dL (2.4-3.5); Glucose 292 mg/dL (70-105); Potassium 3.9 mmol/L (3.5-5.1); Protein, Total 7.3 g/dL (6.0-8.3); Sodium 135 mmol/L (136-145)
[2021-04-28 07:45] LABS: Anisocytosis SLIGHT = 6-15 cells (100X) (0-5/hpf); Band 1 % (5-11); Eosinophils 2 % (0-10); Lymphocytes 28 % (21-51); MDiff Complete? YES; Manual Diff?? YES; Monocytes 10 % (0-10); Neutrophil 59 % (42-75)
[2021-04-28 07:46] LABS: Platelet Morphology Comment Appears Increased
[2021-04-28 07:49] LABS: Bilirubin Negative (Negative); Blood, Urine Negative (Negative); Clarity Clear (Clear); Glucose, Urine (Dipstick) >=1000 mg/dL (Negative); Ketone, Urine 15 mg/dL (Negative); Leukocyte Negative (Negative); Nitrite Negative (Negative); Protein, Urine (Dipstick) Trace mg/dL (Neg-Trace)
[2021-04-28 07:55] LABS: Specific Gravity, Urine 1.035 (1.002-1.036)
[2021-04-28 07:56] LABS: Pregnancy Test - Urine (BHCG) Negative (Negative); Pregu Control Background? CLEAR/WHITE (CLR/WHITE); Pregu Control Bar Appear? YES (CONTROL BAR); Specific Gravity 1.035 (1.002-1.036)
[2021-04-28 07:57] LABS: Amphetamine Not Detected (NotDetected); Barbiturates Screen Not Detected (NotDetected); Benzodiazepine Screen Not Detected (NotDetected); Cocaine Metabolite Screen Not Detected (NotDetected); Medtox Control Line Valid? VALID (VALID); Methadone Not Detected (NotDetected); Methamphetamine Not Detected (NotDetected); Opiate Screen Not Detected (NotDetected); Oxycodone Screen Not Detected (NotDetected); Phencyclidine (PCP) Not Detected (NotDetected); THC/Cannabinoid Screen Not Detected (NotDetected); Tricyclic Screen Not Detected (NotDetected)
[2021-04-28] MEDS ORDERED: Ondansetron PF 4 MG/2 ML Vial ONE (08:23)
[2021-04-28] MEDS ORDERED: Ketorolac Tromethamine 30 MG/ML VIAL ONE (08:23)
[2021-04-28 23:07] LABS: SARS-CoV-2 PCR by NAA Not Detected (NotDetected)
== END 2021-04-28 09:35 | disposition home or self-care (01) ==
LOC: MADERS 06:35
DX: B34.9 Viral infection, unspecified (principal); R07.89 Other chest pain; E11.9 Type 2 diabetes mellitus without complications; E66.9 Obesity, unspecified; Z20.822 Contact with and (suspected) exposure to COVID-19; Z68.45 Body mass index [BMI] 70 or greater, adult
CPT/HCPCS: 71045; 80053; 80306; 81003; 81025; 82550; 83880; 84484; 85025; 85379; 86140; 93005; 94760; 96374; 96375; J1885; J2405; U0003; U0005

== ENCOUNTER 2021-10-30 19:40 | Emergency (ER) | payer BC, OTHER ==
[2021-10-30 20:29] LABS: Bilirubin Negative (Negative); Blood, Urine Large (Negative); Clarity Clear (Clear); Glucose, Urine (Dipstick) >=1000 mg/dL (Negative); Ketone, Urine Negative (Negative); Leukocyte Negative (Negative); Nitrite Negative (Negative); Protein, Urine (Dipstick) Negative (Neg-Trace); Urobilinogen 0.2 mg/dL (Less than 2)
[2021-10-30 20:34] LABS: RBC/HPF Greater than 50 HPF (0-3)
[2021-10-30 20:35] LABS: Bacteria/HPF Rare-Few HPF (None Seen); Pregnancy Test - Urine (BHCG) Negative (Negative); Pregu Control Background? CLEAR/WHITE (CLR/WHITE); Pregu Control Bar Appear? YES (CONTROL BAR); Yeast-Budding 1+ HPF (None Seen)
[2021-10-30] MEDS ORDERED: Ciprofloxacin 500 MG TAB ONE (21:01)
== END 2021-10-30 20:02 | disposition home or self-care (01) ==
LOC: MADERS 19:40
DX: N39.0 Urinary tract infection, site not specified (principal); B37.9 Candidiasis, unspecified; E11.9 Type 2 diabetes mellitus without complications; Z79.4 Long term (current) use of insulin
CPT/HCPCS: 81003; 81015; 81025; 99283

== ENCOUNTER 2021-12-28 09:35 | Emergency (ER) | payer BC, OTHER ==
[2021-12-28 10:01] LABS: Bilirubin Small (Negative); Blood, Urine Negative (Negative); Clarity Clear (Clear); Glucose, Urine (Dipstick) >=1000 mg/dL (Negative); Ketone, Urine 40 mg/dL (Negative); Leukocyte Negative (Negative); Nitrite Negative (Negative); Protein, Urine (Dipstick) 30 mg/dL (Neg-Trace); Urobilinogen 0.2 mg/dL (Less than 2); pH, Urine 5.5 (5.0-9.0)
[2021-12-28] MEDS ORDERED: Dicyclomine 20 MG/2 ML VIAL ONE (10:01)
[2021-12-28] MEDS ORDERED: Ondansetron PF 4 MG/2 ML Vial ONE (10:01)
[2021-12-28] MEDS ORDERED: Lactated Ringer's 1,000 ML ONE ×2 (10:01→11:14)
[2021-12-28] MEDS ORDERED: Ketorolac Tromethamine 30 MG/ML VIAL ONE (10:01)
[2021-12-28 10:02] LABS: Pregnancy Test - Urine (BHCG) Negative (Negative)
[2021-12-28 10:03] LABS: Pregu Control Background? CLEAR/WHITE (CLR/WHITE); Pregu Control Bar Appear? YES (CONTROL BAR)
[2021-12-28 10:10] LABS: RBC/HPF None Seen HPF (0-3)
[2021-12-28 10:11] LABS: Bacteria/HPF Rare-Few HPF (None Seen); Mucous/LPF 1+ LPF (<2+); WBC/HPF None Seen HPF (0-3); Yeast-Budding 1+ HPF (None Seen)
[2021-12-28 10:45] LABS: ALT (SGPT) 12 U/L (8-55); AST (SGOT) 14 U/L (5-34); Albumin 3.4 g/dL (3.5-5.0); Alkaline Phosphatase 105 U/L (40-110); Anion Gap 15 mmol/L (10-20); BUN (Urea Nitrogen) 5 mg/dL (7.0-18.7); Bilirubin, Total 0.4 mg/dL (0.2-1.2); CK (CPK) 61 U/L (29-168); Calc. Creatinine Clearance 0 mL/min (70-130); Calcium 8.4 mg/dL (7.8-10.44); Carbon Dioxide 20 mmol/L (22-29); Chloride 102 mmol/L (98-107); Estimated GFR 121; Globulin 3.7 g/dL (2.4-3.5); Glucose 371 mg/dL (70-105); Lipase 11 U/L (8-78); Magnesium 1.2 mg/dL (1.6-2.6); Potassium 3.6 mmol/L (3.5-5.1); Protein, Total 7.1 g/dL (6.0-8.3); Sodium 133 mmol/L (136-145)
[2021-12-28 10:46] LABS: Hemoglobin 12.5 g/dL (12.0-16.0); Manual Diff?? YES; Mean Corpuscular HGB CONC 29.7 g/dL (32.0-36.0); Mean Corpuscular Hemoglobin 22.8 pg (27.0-31.0); Mean Corpuscular Volume 76.8 fL (78.0-98.0); Mean Platelet Volume 7.1 fL (7.4-10.4); Platelet Count 466 thou/uL (130-400); RBC Distribution Width 13.3 % (11.5-14.5); Red Blood Cell (RBC) Count 5.49 mill/uL (4.20-5.40); White Blood Cell (WBC) Count 4.9 thou/uL (4.8-10.8)
[2021-12-28 10:47] LABS: Anisocytosis SLIGHT = 6-15 cells (100X) (0-5/hpf); Band 2 % (5-11); Eosinophils 1 % (0-10); Lymphocytes 22 % (21-51); MDiff Complete? YES; Microcytosis SLIGHT = 6-15 cells (100X) (0-5/hpf); Monocytes 11 % (0-10); Neutrophil 64 % (42-75)
[2021-12-28 10:48] LABS: Platelet Morphology Comment Appears Increased
[2021-12-28] MEDS ORDERED: Diphenoxylate HCl/Atropine Tablet ONE (11:14)
[2021-12-28] MEDS ORDERED: Magnesium 2 GM/50 ML BAG (IN WATER) ONE (11:14)
[2021-12-28 13:42] LABS: Lactic Acid 2.2 mmol/L (0.5-2.2)
== END 2021-12-28 14:25 | disposition home or self-care (01) ==
LOC: MADERS 09:35
DX: B37.31 Acute candidiasis of vulva and vagina (principal); E86.0 Dehydration; R11.2 Nausea with vomiting, unspecified; R19.7 Diarrhea, unspecified; E11.65 Type 2 diabetes mellitus with hyperglycemia; E83.42 Hypomagnesemia; Z79.4 Long term (current) use of insulin; Z20.822 Contact with and (suspected) exposure to COVID-19
CPT/HCPCS: 36415; 80053; 81003; 81015; 81025; 82550; 83605; 83690; 83735; 85025; 87804; 94760; 96361; 96365; 96372; 96375; J1885; J2405; J3475; J7120; U0003; U0005

== ENCOUNTER 2022-06-04 10:15 | Emergency (ER) | payer BC, OTHER ==
[2022-06-04] MEDS ORDERED: Ibuprofen 800 MG TAB ONE (11:45)
== END 2022-06-04 11:51 | disposition home or self-care (01) ==
LOC: MADERS 10:15
DX: U07.1 COVID-19 (principal); J06.9 Acute upper respiratory infection, unspecified; E11.9 Type 2 diabetes mellitus without complications; E66.9 Obesity, unspecified; Z79.4 Long term (current) use of insulin
CPT/HCPCS: 87081; 87430; 87804; 99283; U0003; U0005

== ENCOUNTER 2022-07-04 08:09 | Emergency (ER) | payer BC, OTHER ==
[2022-07-04] MEDS ORDERED: Ibuprofen 800 MG TAB ONE (08:24)
== END 2022-07-04 09:47 | disposition home or self-care (01) ==
LOC: MADERS 08:09
DX: S93.601A Unspecified sprain of right foot, initial encounter (principal); E11.9 Type 2 diabetes mellitus without complications; E66.9 Obesity, unspecified; Z79.4 Long term (current) use of insulin; X50.1XXA Overexertion from prolonged static or awkward postures, initial encounter

== ENCOUNTER 2022-12-06 16:48 | Emergency (ER) | payer BC, OTHER | END 2022-12-06 19:44 | disposition home or self-care (01) | LOC: MADERS 16:48 | DX: J06.9 Acute upper respiratory infection, unspecified (principal); E66.9 Obesity, unspecified; E11.9 Type 2 diabetes mellitus without complications; Z20.822 Contact with and (suspected) exposure to COVID-19; Z79.4 Long term (current) use of insulin | CPT/HCPCS: 87635; 87804; 99283 ==

== ENCOUNTER 2023-03-01 15:44 | Emergency (ER) | payer BC, OTHER | END 2023-03-01 18:40 | disposition home or self-care (01) | LOC: MADERS 15:44 | DX: J02.9 Acute pharyngitis, unspecified (principal); E11.9 Type 2 diabetes mellitus without complications; Z79.4 Long term (current) use of insulin | CPT/HCPCS: 87081; 87430; 99283 ==

== ENCOUNTER 2023-03-21 18:29 | Emergency (ER) | payer BC, SELFPAY ==
[2023-03-21] MEDS ORDERED: Ketorolac Tromethamine 30 MG (1 mL) VIAL ONE (19:01)
[2023-03-21] MEDS ORDERED: Amoxicillin/Potassium Clav 875 MG TAB ONE (19:01)
== END 2023-03-21 19:21 | disposition home or self-care (01) ==
LOC: MADERS 18:29
DX: K02.9 Dental caries, unspecified (principal); E11.9 Type 2 diabetes mellitus without complications; Z79.4 Long term (current) use of insulin
CPT/HCPCS: 96372; 99282; J1885

== ENCOUNTER 2023-11-22 14:52 | Emergency (ER) | payer OTHER ==
[2023-11-22] MEDS ORDERED: Amoxicillin/Potassium Clav 875 MG TAB ONE (16:55)
== END 2023-11-22 17:04 | disposition home or self-care (01) ==
LOC: MADERS 14:52
DX: H66.92 Otitis media, unspecified, left ear (principal); H60.92 Unspecified otitis externa, left ear; E11.9 Type 2 diabetes mellitus without complications
CPT/HCPCS: 99282

== ENCOUNTER 2023-12-26 23:29 | Emergency (ER) | payer OTHER ==
[2023-12-26] MEDS ORDERED: Dexamethasone 10 MG/ML VIAL ONE (23:58)
[2023-12-26] MEDS ORDERED: diphenhydrAMINE 25 MG CAP ONE (23:58)
[2023-12-26] MEDS ORDERED: Famotidine 20 MG TAB ONE (23:59)
== END 2023-12-27 00:42 | disposition home or self-care (01) ==
LOC: MADERS 23:29
DX: L50.9 Urticaria, unspecified (principal); E11.9 Type 2 diabetes mellitus without complications; Z79.4 Long term (current) use of insulin; Z55.6 Problems related to health literacy
CPT/HCPCS: 99282; J1100

== ENCOUNTER 2024-12-15 17:11 | Emergency (ER) | payer OTHER, SELFPAY ==
[2024-12-15 17:55] LABS: INR-International Normal Ratio 1.0; PTT 29.8 sec (22.9-36.1); Prothrombin Time 13.2 sec (12.0-14.7)
[2024-12-15 18:05] LABS: ALT (SGPT) 11 U/L (Less than 34); AST (SGOT) 13 U/L (11-34); Albumin 3.6 g/dL (3.1-4.5); Alkaline Phosphatase 114 U/L (40-110); Anion Gap 16 mmol/L (10-20); BUN (Urea Nitrogen) 7 mg/dL (7.0-18.7); Bilirubin, Total 0.4 mg/dL (0.3-1.2); Calc. Creatinine Clearance 0 mL/min (70-130); Calcium 9.0 mg/dL (7.8-10.44); Carbon Dioxide 20 mmol/L (22-29); Chloride 105 mmol/L (98-107); Globulin 3.9 g/dL (2.4-3.5); Glucose 300 mg/dL (70-105); Potassium 3.5 mmol/L (3.5-5.1); Sodium 137 mmol/L (136-145)
[2024-12-15 18:08] LABS: Hematocrit 39.8 % (36.0-47.0); Hemoglobin 12.1 g/dL (12.0-16.0); Mean Corpuscular Hemoglobin 22.0 pg (27.0-31.0); Mean Corpuscular Volume 72.4 fl (78.0-98.0); Platelet Count 492 10x3/uL (130-400); Red Blood Cell (RBC) Count 5.50 mill/uL (4.20-5.40); White Blood Cell (WBC) Count 6.9 10x3/uL (4.8-10.8)
[2024-12-15 18:09] LABS: MDiff Complete? YES; Manual Diff?? YES
[2024-12-15 18:10] LABS: Anisocytosis SLIGHT = 6-15 cells (100X) (0-5/hpf); Microcytosis SLIGHT = 6-15 cells (100X) (0-5/hpf); Platelet Adequacy Comment Appears Increased
[2024-12-15 18:30] LABS: BHCG - Serum Negative (NEGATIVE); Pregs Control Background? CLEAR/WHITE (CLR/WHITE); Pregs Control Bar Appear? YES (CONTROL BAR)
== END 2024-12-15 18:40 | disposition home or self-care (01) ==
LOC: MADERS 17:11
DX: N92.0 Excessive and frequent menstruation with regular cycle (principal); N94.6 Dysmenorrhea, unspecified; E11.65 Type 2 diabetes mellitus with hyperglycemia; D75.839 Thrombocytosis, unspecified; E66.9 Obesity, unspecified; Z79.4 Long term (current) use of insulin
CPT/HCPCS: 80053; 84703; 85025; 85610; 85730; 99284; Q0162